=== PATIENT | male | born 1995 | race Caucasian/White ===

== ENCOUNTER 2019-07-28 13:59 | Emergency (ER) | payer OTHER ==
--- NOTE | 2019-07-28 14:35 | CR ---
PROCEDURE INFORMATION: Exam: XR Right Ankle Exam date and time: 07/28/2019 2:10 PM Age: 24 years old Clinical indication: Condition or disease; Other: Right ankle pain TECHNIQUE: Imaging protocol: XR Right ankle. Views: 3 or more views. COMPARISON: No relevant prior studies available. FINDINGS: Bones/joints: The alignment of the joints is anatomic and the joint spaces are maintained. There is no evidence of acute fracture. Soft tissues: There is moderate soft tissue swelling. There is no evidence of a radio-opaque foreign body. IMPRESSION: Soft tissue swelling without acute bony abnormality.
[2019-07-28] MEDS ORDERED: Bacitracin Oint 1 GM U/D Packet TOP ONE (14:51)
--- NOTE | 2019-07-28 14:54 | EDM.PDOC ---
Scribed by Amparo Chua 07/28/19 [id number] for Mateo Adams PA ED HPI GENERAL MEDICAL PROBLEM - General Chief Complaint: Lower Extremity Injury/Pain Stated Complaint: HARVEY DART IN ANKLE Time Seen by Provider: 07/28/19 14:08 Source of Information: Reports: Patient, RN, RN Notes Reviewed History Limitations: Reports: No Limitations - History of Present Illness INITIAL COMMENTS - FREE TEXT/NARRATIVE: This 24 yo male patient reports to the ED due to pain in his right medial ankle. The patient reports he got stuck in the ankle this morning by a yard dart. The patient reports this is his first day of [employer] and the incident happened prior to drill starting. The patient reports increased pain since the incident with a "throbbing pressure to his right medial ankle into his foot." The patient reports he is up to date with his tetanus. Onset: Today Onset Date: 07/28/19 Onset Time: 08:00 Duration: Constant Location: Reports: Lower Extremity, Right (ankle) Quality: Reports: Ache, Dull, Pressure Severity: Moderate Improves with: Reports: None Worsens with: Reports: None Context: Reports: Activity Associated Symptoms: Reports: No Other Symptoms Treatments MEDICAL ASSISTANT DERMATOLOGY: Reports: NSAIDS - Related Data Allergies Allergy/AdvReac Type Severity Reaction Status Date / Time No Known Allergies Allergy Verified 07/28/19 14:12 Home Meds: Home Meds . [No Known Home Meds] 07/28/19 [History] Review of Systems - Review of Systems Review Of Systems: Comprehensive ROS is negative, except as noted in HPI. ED EXAM, GENERAL - Physical Exam Exam: See Below Exam Limited By: No Limitations General Appearance: Alert, WD/WN, Moderate Distress Eye Exam: Bilateral Eye: EOMI, Normal Inspection, PERRL Ears: Normal External Exam, Normal Canal, Hearing Grossly Normal, Normal TMs Nose: Normal Inspection, Normal Mucosa, No Blood Throat/Mouth: Normal Inspection, Normal Lips, Normal Teeth, Normal Gums, Normal Oropharynx, Normal Voice, No Airway Compromise Head: Atraumatic, Normocephalic Neck: Normal Inspection, Supple, Non-Tender, Full Range of Motion Respiratory/Chest: No Respiratory Distress, Lungs Clear, Normal Breath Sounds, No Accessory Muscle Use, Chest Non-Tender Cardiovascular: Normal Peripheral Pulses, Regular Rate, Rhythm, No Edema, No Gallop, No JVD, No Murmur, No Rub GI/Abdominal: Normal Bowel Sounds, Soft, Non-Tender, No Organomegaly, No Distention, No Abnormal Bruit, No Mass (Male) Exam: Deferred Rectal (Males) Exam: Deferred Extremities: Leg Pain (right medial ankle pain ) Neurological: Alert, Oriented, CN II-XII Intact, Normal Cognition, Normal Gait, Normal Reflexes, No Motor/Sensory Deficits Psychiatric: Normal Affect, Normal Mood Skin Exam: Warm, Dry, Normal Color, No Rash, Wound/Incision (right medial ankle with bruising) Lymphatic: No Adenopathy Course - Vital Signs Last Recorded V/S: Last Vital Signs Temp 36.6 C 07/28/19 14:09 Pulse 67 07/28/19 14:09 Resp 16 07/28/19 14:09 BP 136/98 H 07/28/19 14:09 Pulse Ox 100 07/28/19 14:09 Departure - Departure Time of Disposition: 14:51 Disposition: Home, Self-Care 01 Condition: Fair Clinical Impression: Puncture wound of left ankle Qualifiers: Encounter type: initial encounter Qualified Code(s): S91.032A - Puncture wound without foreign body, left ankle, initial encounter - Discharge Information *PRESCRIPTION DRUG MONITORING PROGRAM REVIEWED*: Not Applicable *COPY OF PRESCRIPTION DRUG MONITORING REPORT IN PATIENT JAMAL: Not Applicable Instructions: Puncture Wound Forms: ED Department Discharge Care Plan Goals: The patient was advised of the examination and x-ray results during the visit. The patient was given a script for Augmentin (500/125) #20 to take 1 by mouth 2 times per day for 10 days. The patient's ankle was cleaned and wrapped with an LISA wrap during the visit. The patient was encouraged to rest, ice and elevate the extremity over the next 48 hours. If the patient has any additional symptoms or concerns, the patient should either return to the emergency department or visit his primary care facility. Sepsis Event Note (ED) - Focused Exam Vital Signs: Vital Signs Temp Pulse Resp BP Pulse Ox 07/28/19 14:09 36.6 C 67 16 136/98 H 100 I have read and agree with the documentation that has been completed regarding this visit. By signing this record, I attest that the documentation was completed in my physical presence and is an accurate record of the encounter.
== END 2019-07-28 15:18 | disposition home or self-care (01) ==
LOC: DL.ED 13:59
DX: S91.031A Puncture wound without foreign body, right ankle, initial encounter (principal); S90.01XA Contusion of right ankle, initial encounter; W22.8XXA Striking against or struck by other objects, initial encounter
CPT/HCPCS: 73610-RT; 99283-25